=== PATIENT | female | born 1975 | race African-American/Black ===

== ENCOUNTER 2018-06-30 17:48 | Emergency (ER) | payer SELFPAY ==
--- NOTE | 2018-06-30 19:08 | RAD ---
LEFT KNEE FOUR VIEWS: HISTORY: Joint pain. TECHNIQUE: AP, lateral, and both oblique views of the left knee obtained. FINDINGS: Four views of the left knee demonstrate no evidence of left knee fractures, subluxations, or bony les ions. No acute left knee abnormality seen. IMPRESSION: Normal four views left knee. POS: [facility]
== END 2018-06-30 19:14 | disposition home or self-care (01) ==
LOC: BURERS 17:48
DX: M25.562 Pain in left knee (principal); F41.9 Anxiety disorder, unspecified

== ENCOUNTER → 2018-11-29 | Emergency (ER) | payer SELFPAY | LOC: BURERS 17:37 | DX: J02.9 Acute pharyngitis, unspecified (principal); F41.9 Anxiety disorder, unspecified | CPT/HCPCS: 87081; 87430; 99283 ==